=== PATIENT | female | born 1980 | race Hispanic/Latino ===

== ENCOUNTER 2023-01-05 08:42 | Outpatient (CLI) | payer BC | END 2023-01-05 08:43 | disposition home or self-care (01) | LOC: CSHMAMMO 08:42 | PROVIDERS: ATTEND Obstetrics & Gynecology | DX: Z12.31 Encounter for screening mammogram for malignant neoplasm of breast (principal) | CPT/HCPCS: 77063; 77067 ==

== ENCOUNTER 2024-01-11 08:06 | Outpatient (CLI) | payer BC | END 2024-01-11 08:07 | disposition home or self-care (01) | LOC: CSHMAMMO 08:06 | PROVIDERS: ATTEND Obstetrics & Gynecology | DX: Z12.31 Encounter for screening mammogram for malignant neoplasm of breast (principal); R92.30 Dense breasts, unspecified | CPT/HCPCS: 77063; 77067 ==

== ENCOUNTER 2024-01-19 13:24 | Outpatient (CLI) | payer BC | END 2024-01-19 13:25 | disposition home or self-care (01) | LOC: CSHMAMMO 13:24 | PROVIDERS: ATTEND Obstetrics & Gynecology | DX: N63.20 Unspecified lump in the left breast, unspecified quadrant (principal) | CPT/HCPCS: G0279 ==